=== PATIENT | male | born 1945 | race Caucasian/White ===

== ENCOUNTER 2025-02-16 06:29 | Day surgery (SDC) | payer MEDICARE, BC, SELFPAY ==
[2025-02-16 06:52] VITALS: BMI 22.8
[2025-02-16] MEDS: LACTATED RINGERS 1000ML 1,000 ML 50 ML IV (06:54)
[2025-02-16 06:58] VITALS: BP 125/88; PULSE 69; RESP 18; TEMP 36.2; O2SAT 98
--- NOTE | 2025-02-16 07:27 | EXP.HP ---
History of Present Illness *Admission Date: 02/16/25 *Reason for visit:: Dysphagia *History of present illness: Mr. Moore is a 79-year-old gentleman with intermittent dysphagia. He reported also getting a lot of belching and hiccups who is here for diagnostic EGD. The examination is deemed medically necessary for diagnostic EGD. The patient has been seen, interviewed and examined prior to the procedure by both myself and the anesthesia provider. [facility] Disclaimer: The information contained in this section may have been updated after the patient was seen, as this information can be updated by other users. Medical History (Updated 02/16/25 @ 07:31 by Joe Martin II, MD) BPH (benign prostatic hyperplasia) Arthritis High cholesterol Surgical History Hx of cataract removal with insertion of prosthetic lens Family History Father Heart attack Mother Advanced dementia Social History (Updated 02/16/25 @ 06:58 by Abebe Sal RN) Smoking Status: Former smoker alcohol intake: never substance use type: denies use current occupational status: retired Travel in the last 8 weeks?: None household members: spouse marital status: Have you lived/traveled outside [place] in past 30 days?: No Contact w/someone who lives/traveled outside US past 30 days?: No Exposure to someone with infectious disease in past 14 days?: No Do you have a fever (greater than 100.4 F or 38 C)?: No Have you tested positive for COVID-19?: Yes Exposed to someone with COVID-19 in past 14 days?: No Do you have a sore throat?: No Do you have a cough?: No Do you have any weakness?: No Are you experiencing any nausea/vomitting?: No Do you have any diarrhea?: No Are you experiencing any unusual bleeding?: No Do you have any muscle aches/pain?: No Do you have any abdominal pain?: No Are you experiencing loss of taste or smell?: No Other Medical History Have you received the Pneumonia Vaccine: Yes Review of Systems Review of Systems Review of systems (narrative): Negative *Cardiovascular Comments: Negative *Gastrointestinal Comments: Negative *Genitourinary Comments: Negative *Musculoskeletal Comments: Negative *Neurologic Comments: Negative Meds Home Medications and Allergies Home Medications ?Medication ?Instructions ?Recorded ?Confirmed ?Type acetaminophen 325 mg tablet 325 mg PO QID PRN Pain 12/24/24 02/16/25 History (Tylenol) atorvastatin 80 mg tablet 80 mg PO DAILY 12/24/24 02/16/25 History doxazosin 2 mg tablet 2 mg PO DAILY 12/24/24 02/16/25 History psyllium husk 3.4 gram/5.4 gram 2 tbsp PO DAILY 12/24/24 02/16/25 History oral powder (Metamucil) vitamins A,C,E-hnxw-eiqtha 4,296 1 cap PO BID 12/24/24 02/16/25 History mcg-226 mg-90 mg capsule (PreserVision AREDS) New Prescriptions to Start Prescriptions: Allergies Allergy/AdvReac Type Severity Reaction Status Date / Time No Known Allergies Allergy Verified 02/16/25 06:54 Exam Data for Last 24 hours Vital signs and Labs for Last 24 Hours: Temp Pulse Resp BP Pulse Ox O2 Del Method 97.1 F L 69 18 125/88 98 Room Air 02/16/25 06:58 02/16/25 06:58 02/16/25 06:58 02/16/25 06:58 02/16/25 06:58 02/16/25 06:58 I & O for Last 24 hours: Intake & Output 02/13/25 02/14/25 02/15/25 02/16/25 23:59 23:59 23:59 23:59 Weight 155 lb *Routine HEENT Exam Head: Present normocephalic Eye: Present EOMI and PERRL ENT: Present mucous membranes moist *Routine Neck Exam Neck: Present supple *Routine Respiratory Exam Respiratory: Present CTA bilaterally *Routine Cardiovascular Exam Cardiovascular: Present RRR *Routine Abdominal Exam Abdominal: Present soft and normoactive bowel sounds; Absent tenderness *Routine Rectal Exam Rectal:: deferred *Routine Genitalia Exam Genitalia:: deferred *Routine Extremities Exam Extremities: Absent cyanosis, clubbing or edema *Routine Skin Exam Skin: Present warm; Absent rash *Routine Neurological Exam Neurological: Present alert and oriented X3 Assessment and Plan *Assessment and plan (1) Dysphagia: Status: Acute Category: Medical Code(s): R13.10 - Dysphagia, unspecified (2) Belching: Status: Acute Category: Medical Code(s): R14.2 - Eructation (3) Regurgitation of food: Status: Acute Category: Medical Code(s): R11.10 - Vomiting, unspecified (4) Hiccups: Status: Acute Category: Medical Code(s): R06.6 - Hiccough (5) Early satiety: Status: Acute Category: Medical Code(s): R68.81 - Early satiety (6) GERD (gastroesophageal reflux disease): Status: Acute Category: Medical Code(s): K21.9 - Gastro-esophageal reflux disease without esophagitis Plan A/P: 1. Dysphagia with belching, hiccups and regurgitation of food is the preprocedural diagnosis. The patient does have heartburn and reflux with some early satiety and minor nausea the patient will be anesthetized/sedated using MAC sedation. The patient has been seen and examined. Cardiac and lung assessment prior to the examination is stable. Proceed with planned diagnostic EGD.
--- NOTE | 2025-02-16 07:32 | P.PCN_ITS ---
[facility] Procedure Note Date: 02/16/25 Time: 07:41 Procedure Note:: Upper Endoscopy Procedure Report: Esophagogastroduodenoscopy with cold biopsies and TTS balloon dilation Endoscopost: Joe Martin II, MD Referring Physician: Abebe Issa MD Date of Procedure: February 16, 2025 Equipment: Olympus GIF 190 standard upper endoscope Sedation: MAC sedation Indications: Mr. Moore is a 79-year-old gentleman who is here for diagnostic upper endoscopy secondary to postprandial fluid reflux with food particles and extreme belching. The patient does reports some heartburn. This is frothy fluid reflux. The patient does report some early satiety and minor nausea. He reports no gassiness or bloating. He reports no abdominal pain, weight loss or change in bowel habits. This is his first upper endoscopy. Procedure: Prior to the procedure, a history and physical exam was performed, and patient's medications and allergies were reviewed. The risks, benefits and alternatives of the sedation and procedure were discussed with the patient. All questions were answered and informed consent was obtained. The patient was brought to the procedure room. Patient identification and proposed procedure were verified by the physician and the nurse. The patient was placed in a left lateral decubitus position and the scope was passed under direct vision. Throughout the procedure, the patient's blood pressure, pulse, and oxygen saturations were monitored continuously. The upper GI endoscopy was accomplished without difficulty. The patient tolerated the procedure well. Findings: The scope was passed directly into the upper esophagus and advanced to the fourth portion of duodenum and proximal jejunum. A cold biopsy was taken x 1 from the proximal jejunum for disaccharidase assay. The proximal jejunum, post bulbar duodenum, ampulla and duodenal bulb were normal with normal mucosa and conniventes. The scope was withdrawn through a normal duodenal bulb and pylorus into the stomach. The antrum was normal. There was some mild chronic gastritis of the body and fundus and cold biopsies were taken along the lesser curvature to rule out H. pylori. Upon retroflexion there was a very small sliding hiatal hernia. The scope was then withdrawn into the esophagus. There was a distal fibrotic ring that was originally 6 or 7 mm in diameter and the endoscope shattered this initially. This was dilated up to 20 mm with a TTS hydrostatic balloon. There was no reflux esophagitis. There was a pseudodiverticulum just proximal to the distal fibrotic ring in the lower esophagus. There was also marked tertiary contractions and marked esophageal dysmotility. There was some mucosal exudate. There was no furrowing or Stephanie. There was mild resistance at the cricopharyngeus with dilation to 20 mm. The remainder of the esophageal mucosa was normal. Impression: 1. Distal esophageal ring (original diameter 6 to 7 mm)?dilated to 20 mm 2. Marked esophageal dysmotility and cricopharyngeal spasm 3. Mild chronic gastritis?rule out H. pylori Plan: I will follow-up the biopsies and disaccharidase assay. We will discuss additional treatment options. I would recommend PPI therapy presently. He should have clinical improvement with dilation.
[2025-02-16 07:45] VITALS: BP 161/64; PULSE 74; RESP 17; TEMP 36.4; O2SAT 97
--- NOTE | 2025-02-16 07:45 | EXP.ANES.CKL ---
[facility] Disclaimer: The information contained in this section may have been updated after the patient was seen, as this information can be updated by other users. Medical History (Updated 02/16/25 @ 07:31 by Joe Martin II, MD) BPH (benign prostatic hyperplasia) Arthritis High cholesterol Surgical History Hx of cataract removal with insertion of prosthetic lens Family History Father Heart attack Mother Advanced dementia Social History (Updated 02/16/25 @ 06:58 by Abebe Sal RN) Smoking Status: Former smoker alcohol intake: never substance use type: denies use current occupational status: retired Travel in the last 8 weeks?: None household members: spouse marital status: Have you lived/traveled outside [place] in past 30 days?: No Contact w/someone who lives/traveled outside [place] past 30 days?: No Exposure to someone with infectious disease in past 14 days?: No Do you have a fever (greater than 100.4 F or 38 C)?: No Have you tested positive for COVID-19?: Yes Exposed to someone with COVID-19 in past 14 days?: No Do you have a sore throat?: No Do you have a cough?: No Do you have any weakness?: No Are you experiencing any nausea/vomitting?: No Do you have any diarrhea?: No Are you experiencing any unusual bleeding?: No Do you have any muscle aches/pain?: No Do you have any abdominal pain?: No Are you experiencing loss of taste or smell?: No [facility] Anesthesia Checklist Patient Identification Patient Identification: Arm Band Structural Data Admitted From: Home Planned Operative Procedure/s: EGD Consent for Planned Operative Procedure(s) Verified: Yes Verified Documents: Surgical Consent and History and Physical NPO Status Verified Time NPO: 00:00 Additional verifications Anesthesia Reactions: No Airway Assessment Mallampati Score:: Class II C-Spine Mobility Assessed: Yes TMJ Mobility Assessed: Yes Dentition: Good Dentition Neurological Assessment Level of Consciousness: Awake, Alert and Appropriate Anesthesia Plan Anesthesia Risk discussed: Yes Anesthesia Plan: Verified ASA Class: II Anesthesia Type: MAC
[2025-02-16 07:55] VITALS: BP 91/58; PULSE 72; RESP 17; O2SAT 97
[2025-02-16 08:05] VITALS: BP 108/69; PULSE 67; RESP 18; O2SAT 97
--- NOTE | 2025-02-16 08:10 | EXP.ANES.CKL ---
[facility] Disclaimer: The information contained in this section may have been updated after the patient was seen, as this information can be updated by other users. Medical History (Updated 02/16/25 @ 07:31 by Joe Martin II, MD) BPH (benign prostatic hyperplasia) Arthritis High cholesterol Surgical History Hx of cataract removal with insertion of prosthetic lens Family History Father Heart attack Mother Advanced dementia Social History (Updated 02/16/25 @ 06:58 by Abebe Sal RN) Smoking Status: Former smoker alcohol intake: never substance use type: denies use current occupational status: retired Travel in the last 8 weeks?: None household members: spouse marital status: Have you lived/traveled outside [place] in past 30 days?: No Contact w/someone who lives/traveled outside [place] past 30 days?: No Exposure to someone with infectious disease in past 14 days?: No Do you have a fever (greater than 100.4 F or 38 C)?: No Have you tested positive for COVID-19?: Yes Exposed to someone with COVID-19 in past 14 days?: No Do you have a sore throat?: No Do you have a cough?: No Do you have any weakness?: No Are you experiencing any nausea/vomitting?: No Do you have any diarrhea?: No Are you experiencing any unusual bleeding?: No Do you have any muscle aches/pain?: No Do you have any abdominal pain?: No Are you experiencing loss of taste or smell?: No [facility] Anesthesia Checklist Patient Identification Patient Identification: Verbal (Name & ) Structural Data Admitted From: Home Planned Operative Procedure/s: egd Additional verifications Anesthesia Reactions: No Airway Assessment Mallampati Score:: Class II C-Spine Mobility Assessed: Yes TMJ Mobility Assessed: Yes Dentition: Good Dentition Neurological Assessment Level of Consciousness: Awake, Alert and Appropriate Anesthesia Plan Anesthesia Risk discussed: Yes Anesthesia Plan: Verified ASA Class: II Anesthesia Type: MAC
[2025-02-16 08:15] VITALS: BP 111/76; PULSE 66; RESP 18; TEMP 36.4; O2SAT 98
[2025-02-18 17:51] LABS: Disclaimer Notes (.); Interpretation Notes (.); Lactase 29.3 (>/= 14.0); Maltase 169.18 (>/= 110.0); Palatinase 10.43 (>/= 8.5); Reference Notes (.); Sucrase 37.08 (>/= 25.0)
== END 2025-02-16 08:29 | disposition home or self-care (01) ==
PROVIDERS: PCP Family Medicine; Visit Provider Internal Medicine Gastroenterology
PROC: 0DJ08ZZ Inspection of Upper Intestinal Tract, Via Natural or Artificial Opening Endoscopic (ICD-10-PCS; CPT 43239; principal; 2025-02-16 07:30)
DX: K20.90 Esophagitis, unspecified without bleeding (principal); K29.50 Unspecified chronic gastritis without bleeding; M19.90 Unspecified osteoarthritis, unspecified site; N40.0 Benign prostatic hyperplasia without lower urinary tract symptoms; Z87.891 Personal history of nicotine dependence; Z79.899 Other long term (current) drug therapy
CPT/HCPCS: 43239; 43249; 82657; 88305; C1726; J7120